=== PATIENT | female | born 1995 | race Caucasian/White ===

== ENCOUNTER 2018-12-26 10:46 | Emergency (ER) | payer BC, SELFPAY ==
[2018-12-26] MEDS ORDERED: PEN G BENZ LA 2.4 MU/4 ML SYRINGE IM ONE (12:55)
--- NOTE | 2018-12-26 13:15 | EDPHYS ---
Physician Documentation [facility] Name: Bret Oates Age: 23 yrs Sex: Female : 1995 Arrival Date: 12/26/2018 Time: 10:48 Bed 24 Private MD: ED Physician Ramakrishna Huber HPI: 12/26 13:41 This 23 yrs old Female presents to ER via Ambulatory with complaints of snw Facial Swelling, Sore Throat. 13:41 Onset: The symptoms/episode began/occurred suddenly, and became worse. Associated signs snw and symptoms: Pertinent positives: rosacea flare up, significant increase in comedones since stopping oral charcoal. Modifying factors: The patient symptoms are alleviated by nothing. It is unknown whether or not the patient has had similar symptoms in the past. The patient has been recently seen by a physician: with different complaint(s), given amoxil for tooth pain. pt stopped charcoal tabs so the amoxil could be absorbed. . 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 - Social history:: Smoking status: Patient/guardian denies using tobacco. - Ebola Screening: : No symptoms or risks identified at this time. ROS: 13:40 Constitutional: Negative for fever, chills, and weight loss, Eyes: Negative for injury, snw pain, redness, and discharge. 13:40 Neck: Negative for injury, pain, and swelling, Cardiovascular: Negative for chest pain, palpitations, and edema, Respiratory: Negative for shortness of breath, cough, wheezing, and pleuritic chest pain, Abdomen/GI: Negative for abdominal pain, nausea, vomiting, diarrhea, and constipation, Back: Negative for injury and pain, : Negative for injury, bleeding, discharge, and swelling, MS/Extremity: Negative for injury and deformity, Skin: Negative for injury, rash, and discoloration, Neuro: Negative for headache, weakness, numbness, tingling, and seizure, Psych: Negative for depression, anxiety, suicide ideation, homicidal ideation, and hallucinations. 13:40 ENT: Positive for dental pain, rosacea flair. Exam: 13:33 Constitutional: This is a well developed, well nourished patient who is awake, alert, snw and in no acute distress. Head/Face: normocephalic, atraumatic, fire engine red face with countless tiny papules Eyes: Pupils equal round and reactive to light, extra-ocular motions intact. Lids and lashes normal. Conjunctiva and sclera are non-icteric and not injected. Cornea within normal limits. Periorbital areas with no swelling, redness, or edema. 13:33 Neck: Trachea midline, no thyromegaly or masses palpated, and no cervical lymphadenopathy. Supple, full range of motion without nuchal rigidity, or vertebral point tenderness. No Meningismus. Chest/axilla: Normal chest wall appearance and motion. Nontender with no deformity. No lesions are appreciated. Cardiovascular: Regular rate and rhythm with a normal S1 and S2. No gallops, murmurs, or rubs. Normal PMI, no JVD. No pulse deficits. Respiratory: Lungs have equal breath sounds bilaterally, clear to auscultation and percussion. No rales, rhonchi or wheezes noted. No increased work of breathing, no retractions or nasal flaring. Abdomen/GI: Soft, non-tender, with normal bowel sounds. No distension or tympany. No guarding or rebound. No evidence of tenderness throughout. Back: No spinal tenderness. No costovertebral tenderness. Full range of motion. Skin: Warm, dry with normal turgor. Normal color with no rashes, no lesions, and no evidence of cellulitis. MS/ Extremity: Pulses equal, no cyanosis. Neurovascular intact. Full, normal range of motion. Neuro: Awake and alert, GCS 15, oriented to person, place, time, and situation. Cranial nerves II-XII grossly intact. Motor strength 5/5 in all extremities. Sensory grossly intact. Cerebellar exam normal. Normal gait. Psych: Awake, alert, with orientation to person, place and time. Behavior, mood, and affect are within normal limits. 13:33 ENT: Dental exam: normal, pain, that is moderate, specifically in the lower right third molar (#32). Vital Signs: 11:01 BP 150 / 96; Pulse 98; Resp 16 S; Temp 98.8(O); Pulse Ox 98% on R/A; Pain 4/10; aa5 12:59 BP 119 / 76; Pulse 87; Resp 14 S; Pulse Ox 100% on R/A; ca1 MDM: 12:03 Patient medically screened. snw 13:32 Data reviewed: vital signs, nurses notes. Data interpreted: Pulse oximetry: on room air snw is 100 %. Interpretation: normal. Counseling: I had a detailed discussion with the patient and/or guardian regarding: the historical points, exam findings, and any diagnostic results supporting the discharge/admit diagnosis, lab results, the need for outpatient follow up, to return to the emergency department if symptoms worsen or persist or if there are any questions or concerns that arise at home. Special discussion: Based on the history and exam findings, there is no indication for further emergent testing or inpatient evaluation. I discussed with the patient/guardian the need to see a dentist for further evaluation of the symptoms. I discussed with the patient/guardian the need to see the pressroom supervisor for further evaluation of the symptoms. I discussed with the patient/guardian the need to see the primary care provider for further evaluation of the symptoms. 13:42 Response to treatment: will give IM Bicillin so patient can resume oral charcoal. snw 12/26 12:35 Order name: Strep; Complete Time: 13:32 snw 12/26 13:24 Order name: Throat Culture EDMS Administered Medications: 12:57 Drug: Bicillin L-A 2.4 million units Route: IM; Site: right gluteus; ca1 13:19 Follow up: Response: No adverse reaction ca1 Disposition: 17:54 Co-signature as Attending Physician, Ramakrishna Huber MD. rn Disposition: 12/26/18 13:14 Discharged to Home. Impression: Rosacea, Dental caries. - Condition is Stable. - Discharge Instructions: Dental Pain, Cryotherapy, Preventive Dental Care, Adult, Rosacea. - Medication Reconciliation Form, Thank You Letter, Antibiotic Education, Prescription Opioid Use form. - Follow up: Private Physician; When: 2 - 3 days; Reason: Recheck today's complaints, Continuance of care, Re-evaluation by your physician. Follow up: Emergency Department; When: As needed; Reason: Worsening of condition. Signatures: Dispatcher MedHo EDKaia Hopson, MEEK-Kali TEARER PRESS CLIPPING-Csnw Ramakrishna Huber MD MD rn Brynn Mckeon, RN RN aa5 Guerda Carlson RN RN ca1 Corrections: (The following items were deleted from the chart) 13:25 13:14 12/26/2018 13:14 Discharged to Home. Impression: Rosacea; Dental caries. ca1 Condition is Stable. Forms are Medication Reconciliation Form, Thank You Letter, Antibiotic Education, Prescription Opioid Use. Follow up: Private Physician; When: 2 - 3 days; Reason: Recheck today's complaints, Continuance of care, Re-evaluation by your physician. Follow up: Emergency Department; When: As needed; Reason: Worsening of condition. snw
--- NOTE | 2018-12-26 13:15 | ER ---
Nurse[facility] Name: Bret Oates Age: 23 yrs Sex: Female : 1995 Arrival Date: 12/26/2018 Time: 10:48 Bed 24 Private MD: Diagnosis: Rosacea;Dental caries Presentation: 12/26 11:00 Presenting complaint: Patient states: "I have acne rosacea and it flared up about 2 aa5 days ago when I stopped my charcoal tablets". Pt also reports sore throat x 1 week ago. Transition of care: patient was not received from another setting of care. Onset of symptoms was December 2018. Risk Assessment: Do you want to hurt yourself or someone else? Patient reports no desire to harm self or others. Initial Sepsis Screen: Does the patient meet any 2 criteria? No. Patient's initial sepsis screen is negative. Does the patient have a suspected source of infection? No. Patient's initial sepsis screen is negative. Care prior to arrival: None. 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 - Social history:: Smoking status: Patient/guardian denies using tobacco. - Ebola Screening: : No symptoms or risks identified at this time. Screenin:01 Abuse screen: Denies threats or abuse. Denies injuries from another. Nutritional ca1 screening: No deficits noted. Tuberculosis screening: No symptoms or risk factors identified. Fall Risk None identified. Assessment: 12:01 General: Appears in no apparent distress. comfortable, Behavior is calm, cooperative, ca1 appropriate for age. Pain: Complains of pain in face Pain currently is 4 out of 10 on a pain scale. Pain began today. Neuro: Level of Consciousness is awake, alert, obeys commands, Oriented to person, place, time, situation. Cardiovascular: Heart tones S1 S2 present Capillary refill < 3 seconds Patient's skin is warm and dry. Pulses are all present. Respiratory: Airway is patent Respiratory effort is even, unlabored, Respiratory pattern is regular, symmetrical, Breath sounds are clear bilaterally. GI: Abdomen is round non-distended, Bowel sounds present X 4 quads. Abd is soft and non tender X 4 quads. : No deficits noted. No signs and/or symptoms were reported regarding the genitourinary system. EENT: Throat is clear is pink has enlarged tonsils bilaterally. Derm: Skin is intact, is healthy with good turgor, Skin is pink, warm \\T\\ dry. Musculoskeletal: Circulation, motion, and sensation intact. Capillary refill < 3 seconds, Range of motion: intact in all extremities. 12:59 Reassessment: Patient appears in no apparent distress at this time. Patient and/or ca1 family updated on plan of care and expected duration. Pain level reassessed. Patient is alert, oriented x 3, equal unlabored respirations, skin warm/dry/pink. Vital Signs: 11:01 BP 150 / 96; Pulse 98; Resp 16 S; Temp 98.8(O); Pulse Ox 98% on R/A; Pain 4/10; aa5 12:59 BP 119 / 76; Pulse 87; Resp 14 S; Pulse Ox 100% on R/A; ca1 ED Course: 10:48 Patient arrived in ED. as 11:00 Arm band placed on. aa5 11:01 Triage completed. aa5 11:42 [facility]C [facility] snw 11:42 Ramakrishna Huber MD is Attending Physician. snw 11:57 Guerda Carlson, MACARIO is Primary Nurse. ca1 12:01 Patient has correct armband on for positive identification. Placed in gown. Bed in low ca1 position. Call light in reach. Side rails up X 1. Pulse ox on. NIBP on. Warm blanket given. 12:07 No provider procedures requiring assistance completed. ca1 13:03 Strep swab sent to lab. lt1 13:24 Patient did not have IV access during this emergency room visit. ca1 Administered Medications: 12:57 Drug: Bicillin L-A 2.4 million units Route: IM; Site: right gluteus; ca1 13:19 Follow up: Response: No adverse reaction ca1 Outcome: 13:14 Discharge ordered by . snw 13:24 Discharged to home ambulatory, with family. ca1 13:24 Condition: stable 13:24 Discharge instructions given to patient, Instructed on discharge instructions, follow up and referral plans. Demonstrated understanding of instructions, follow-up care. 13:25 Patient left the ED. ca1 Signatures: Kaia Lino, SMOKE EATER-C SMOKE EATER-[place] Alyse Rogers Audri RN RN aa5 Guerda Carlson RN RN ca1 Fisher, Angelina lt1 Corrections: (The following items were deleted from the chart) 11:03 11:00 Presenting complaint: Patient states: "I have acne and it flared up about 2 days aa5 ago when I stopped my charcoal tablets". Pt also reports sore throat x 1 week ago. aa5
[2018-12-26 14:36] VITALS: TEMP 98.8
[2018-12-26 14:37] VITALS: BP 119/76; O2SAT 100
== END 2018-12-26 13:25 | disposition home or self-care (01) ==
LOC: ER 10:46
DX: L71.9 Rosacea, unspecified (principal); K02.9 Dental caries, unspecified
CPT/HCPCS: 87070; 87081; 96372; 99283; J0561

== ENCOUNTER 2019-03-11 20:06 | Emergency (ER) | payer BC, SELFPAY ==
--- NOTE | 2019-03-11 21:08 | RAD REPORT ---
EXAM DESCRIPTION: RAD - Ankle Right 3 View - 03/11/2019 9:02 pm CLINICAL HISTORY: Right ankle pain FINDINGS: No fracture or dislocation is seen.
--- NOTE | 2019-03-11 21:18 | EDPHYS ---
Physician Documentation [facility] Name: Bret Oates Age: 23 yrs Sex: Female : 1995 Arrival Date: 03/11/2019 Time: 20:08 Bed 26 Private MD: YVETTE Physician Kunal Etienne HPI: 03/11 20:57 This 23 yrs old Female presents to ER via Wheelchair with complaints of Ankle kb Injury. 20:57 The patient presents with "my bone is sticking out more on this side than the other" . kb The complaints affect the right ankle. Onset: The symptoms/episode began/occurred this morning. Context: The problem was sustained at home, resulted from The mechanism of injury involved inversion of the affected ankle. The patient can fully bear weight on the affected extremity. the patient is able to ambulate. Associated signs and symptoms: The patient has no apparent associated signs or symptoms. Modifying factors: The symptoms are alleviated by nothing, the symptoms are aggravated by nothing. Severity of symptoms: At their worst the symptoms were very mild, in the emergency department the symptoms are unchanged. The patient has not experienced similar symptoms in the past. The patient has not recently seen a physician. Pt reports she twisted her ankle this morning, but hasn't had any pain, decreased ROM or difficulty walking. Tonight she noticed that the bone on the right side is sticking out further than the same bone on the left side and "it is concerning.". 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 - Social history:: Smoking status: Patient/guardian denies using tobacco. - Ebola Screening: : Patient denies travel to an Ebola-affected area in the 21 days before illness onset No symptoms or risks identified at this time. ROS: 20:55 Constitutional: Negative for fever, chills, and weight loss, Cardiovascular: Negative kb for chest pain, palpitations, and edema, Respiratory: Negative for shortness of breath, cough, wheezing, and pleuritic chest pain, Abdomen/GI: Negative for abdominal pain, nausea, vomiting, diarrhea, and constipation, Back: Negative for injury and pain, Skin: Negative for injury, rash, and discoloration, Neuro: Negative for headache, weakness, numbness, tingling, and seizure. 20:55 MS/extremity: Positive for of the right ankle, "looks different than the other". Exam: 20:56 Constitutional: This is a well developed, well nourished patient who is awake, alert, kb and in no acute distress. Head/Face: Normocephalic, atraumatic. Neck: Trachea midline, no thyromegaly or masses palpated, and no cervical lymphadenopathy. Supple, full range of motion without nuchal rigidity, or vertebral point tenderness. No Meningismus. Chest/axilla: Normal chest wall appearance and motion. Nontender with no deformity. No lesions are appreciated. Cardiovascular: Regular rate and rhythm with a normal S1 and S2. No gallops, murmurs, or rubs. Normal PMI, no JVD. No pulse deficits. Respiratory: Lungs have equal breath sounds bilaterally, clear to auscultation and percussion. No rales, rhonchi or wheezes noted. No increased work of breathing, no retractions or nasal flaring. Abdomen/GI: Soft, non-tender, with normal bowel sounds. No distension or tympany. No guarding or rebound. No evidence of tenderness throughout. Back: No spinal tenderness. No costovertebral tenderness. Full range of motion. Skin: Warm, dry with normal turgor. Normal color with no rashes, no lesions, and no evidence of cellulitis. MS/ Extremity: Pulses equal, no cyanosis. Neurovascular intact. Full, normal range of motion. Distal end of tibia on medial side more pronounced than on right side than left. No tenderness, decreased ROM or other signs of trauma Neuro: Awake and alert, GCS 15, oriented to person, place, time, and situation. Cranial nerves II-XII grossly intact. Motor strength 5/5 in all extremities. Sensory grossly intact. Cerebellar exam normal. Normal gait. Vital Signs: 20:26 BP 147 / 97; Pulse 99; Resp 18; Temp 98.7(O); Pulse Ox 99% on R/A; Weight 99.79 kg (R); fc Pain 0/10; 21:34 BP 130 / 78; Pulse 89; Resp 18; Temp 98; Pulse Ox 100% on R/A; mg2 MDM: 20:34 Patient medically screened. kb 20:54 Data reviewed: vital signs, nurses notes. Data interpreted: Pulse oximetry: on room air kb is 99 %. Interpretation: normal. Counseling: I had a detailed discussion with the patient and/or guardian regarding: the historical points, exam findings, and any diagnostic results supporting the discharge/admit diagnosis, radiology results, the need for outpatient follow up, a orthopedic surgeon, to return to the emergency department if symptoms worsen or persist or if there are any questions or concerns that arise at home. 03/11 20:42 Order name: Ankle Right 3 View XRAY; Complete Time: 21:16 kb Administered Medications: No medications were administered Disposition: 03/12 12:09 Co-signature as Attending Physician, Kunal Etienne MD I agree with the assessment and john plan of care. Disposition: 03/11/19 21:16 Discharged to Home. Impression: Sprain of ankle. - Condition is Stable. - Discharge Instructions: Ankle Sprain, [id number]. - Medication Reconciliation Form, Thank You Letter, Antibiotic Education, Prescription Opioid Use form. - Follow up: Emergency Department; When: As needed; Reason: Worsening of condition. Follow up: Private Physician; When: 2 - 3 days; Reason: Recheck today's complaints, Continuance of care, Re-evaluation by your physician. Signatures: Dispatcher [employer] EDMS Erica Pompa, COMPUTER RECYCLING WORKER-C COMPUTER RECYCLING WORKER-Kunal Toscano MD MD cha Chretien, Felicia, RN RN Abdifatah Kim RN RN mg2 Corrections: (The following items were deleted from the chart) 03/11 21:36 21:16 03/11/2019 21:16 Discharged to Home. Impression: Sprain of ankle. Condition is mg2 Stable. Forms are Medication Reconciliation Form, Thank You Letter, Antibiotic Education, Prescription Opioid Use. Follow up: Emergency Department; When: As needed; Reason: Worsening of condition. Follow up: Private Physician; When: 2 - 3 days; Reason: Recheck today's complaints, Continuance of care, Re-evaluation by your physician. kb
--- NOTE | 2019-03-11 21:18 | ER ---
Nurse's Notes [facility] Name: Bret Oates Age: 23 yrs Sex: Female : 1995 Arrival Date: 03/11/2019 Time: 20:08 Bed 26 Private MD: Diagnosis: Sprain of ankle Presentation: 03/11 20:32 Presenting complaint: Patient states: Patient states she twisted her right ankle today ae4 about 1000. Pt denies pain, states "it's just concerning, it looks different than the other one.". 20:32 Risk Assessment: Do you want to hurt yourself or someone else? Patient reports no mg2 desire to harm self or others. 20:32 Method Of Arrival: Ambulatory mg2 20:32 Transition of care: patient was not received from another setting of care. Onset of mg2 symptoms was February 2019. Initial Sepsis Screen: Does the patient meet any 2 criteria? No. Patient's initial sepsis screen is negative. Does the patient have a suspected source of infection? No. Patient's initial sepsis screen is negative. Care prior to arrival: None. 20:32 Acuity: DEBI 4 mg2 Triage Assessment: 20:32 General: Appears in no apparent distress. obese, Behavior is calm. Pain: Denies pain. ae4 Neuro: Level of Consciousness is awake, alert, obeys commands, Oriented to person, place, time, situation. Derm: Redness and lesion to face. Pt states she has rosacea. Musculoskeletal: Swelling present in right medial malleolus. 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 - Social history:: Smoking status: Patient/guardian denies using tobacco. - Ebola Screening: : Patient denies travel to an Ebola-affected area in the 21 days before illness onset No symptoms or risks identified at this time. Screenin:33 Abuse screen: Denies threats or abuse. Denies injuries from another. Nutritional mg2 screening: No deficits noted. Tuberculosis screening: No symptoms or risk factors identified. Fall Risk None identified. Assessment: 21:32 General: Appears in no apparent distress. comfortable, Behavior is calm, cooperative. mg2 Pain: Complains of pain in right ankle. Neuro: Level of Consciousness is awake, alert, obeys commands, Oriented to person, place, time, situation. Cardiovascular: Capillary refill < 3 seconds Patient's skin is warm and dry. Respiratory: Airway is patent Respiratory effort is even, unlabored, Respiratory pattern is regular, symmetrical. GI: No signs and/or symptoms were reported involving the gastrointestinal system. : No signs and/or symptoms were reported regarding the genitourinary system. EENT: No signs and/or symptoms were reported regarding the EENT system. Derm: Skin is intact, is healthy with good turgor, Skin is pink, warm \\T\\ dry. normal. Musculoskeletal: Circulation, motion, and sensation intact. Capillary refill < 3 seconds, Reports pain in right ankle since today. Vital Signs: 20:26 BP 147 / 97; Pulse 99; Resp 18; Temp 98.7(O); Pulse Ox 99% on R/A; Weight 99.79 kg (R); fc Pain 0/10; 21:34 BP 130 / 78; Pulse 89; Resp 18; Temp 98; Pulse Ox 100% on R/A; mg2 ED Course: 20:08 Patient arrived in ED. cl3 20:20 Erica Pompa [facility]-C [facility]. kb 20:21 Kunal Etienne MD is Attending Physician. kb 20:28 Triage completed. fc 21:06 Ankle Right 3 View XRAY In Process Unspecified. EDMS 21:28 Abdifatah Giordano, MACARIO is Primary Nurse. mg2 21:32 Arm band placed on. mg2 21:34 Patient has correct armband on for positive identification. mg2 21:34 No provider procedures requiring assistance completed. Patient did not have IV access mg2 during this emergency room visit. Administered Medications: No medications were administered Outcome: 21:16 Discharge ordered by . kb 21:34 Discharged to home ambulatory, with family. mg2 21:34 Condition: stable 21:34 Discharge instructions given to patient, family, Instructed on discharge instructions, follow up and referral plans. Demonstrated understanding of instructions, follow-up care. 21:36 Patient left the ED. mg2 Signatures: Dispatcher [employer] EDMS Erica Pompa FNP-C THEATRICAL VARIETY AGENT-Ckb Shruti Zaragoza RN RN Abdifatah Giordano, MACARIO [facility] Yovanny Woodard RN RN ae4 Skye De Los Santos cl3 Corrections: (The following items were deleted from the chart) 20: Presenting complaint: Patient states: Patient states she twisted her ankle this ae4 morning at about 1000. Patient denies pain, reports "it is concerning, it looks different from the other one." 20:27 Transition of care: patient was not received from another setting of care. ae4 20:27 Onset of symptoms was March 11, 2019 at 10:00 ae4 20:27 Risk Assessment: Do you want to hurt yourself or someone else? Patient reports no ae4 desire to harm self or others. 20: Method Of Arrival: Wheelchair ae4 : 20:27 Acuity: DEBI 4 ae4 :33 20:30 General: Appears in no apparent distress. comfortable, obese, ae4 :33 20:30 Pain: Denies pain. ae4 :33 20:30 Musculoskeletal: Swelling present in right medial malleolus ae4
[2019-03-11 21:45] VITALS: BP 130/78; TEMP 98; O2SAT 100
== END 2019-03-11 21:36 | disposition home or self-care (01) ==
LOC: ER 20:06
DX: S93.401A Sprain of unspecified ligament of right ankle, initial encounter (principal); X50.1XXA Overexertion from prolonged static or awkward postures, initial encounter; Y93.89 Activity, other specified; Y92.009 Unspecified place in unspecified non-institutional (private) residence as the place of occurrence of the external cause; I10 Essential (primary) hypertension
CPT/HCPCS: 99283